=== PATIENT | male | born 1985 | race Caucasian/White ===

== ENCOUNTER 2018-11-25 21:12 | Emergency (ER) | payer MEDICARE ==
[2018-11-25 21:27] VITALS: BP 120/73
--- NOTE | 2018-11-25 22:29 | ER Document Report ---
ED General - General Chief Complaint: Trouble Voiding Stated Complaint: URINARY ISSUES Time Seen by Provider: 11/25/18 22:28 Notes: Patient is a 33-year-old male that presents to the emergency department for chief complaint of not urinating. Patient is mentally handicapped, has a difficult time articulating what is been going on but he states that he has not urinated since last night potentially, but he does not always remember. He denies having any pain associated with this. He does states that he cannot go. He denies any recent fever, chills, nausea, vomiting or abdominal pain. No chest pain or shortness of breath. He states that yesterday his testicle on the left side was slightly swollen, but has since gone down. Past Medical History: Developmental delay Past Surgical History: Denies recent or pertinent surgical history Social History: Denies current tobacco, alcohol or drug use. Family History: Reviewed and noncontributory for presenting illness Allergies: Reviewed, see documented allergy list. REVIEW OF SYSTEMS: Other than noted above, the 12 point review of systems was reviewed with the patient and were negative, all pertinent findings are included in the HPI. PHYSICAL EXAMINATION: Vital signs reviewed, nursing noted reviewed. GENERAL: Well-appearing, well-nourished and in no acute distress. HEAD: Atraumatic, normocephalic. EYES: Eyes appear normal, extraocular movements intact, sclera anicteric, co njunctiva are normal. ENT: nares patent, oropharynx clear without exudates. Moist mucous membranes. NECK: Normal range of motion, supple without lymphadenopathy LUNGS: Breath sounds clear to auscultation bilaterally and equal. No wheezes rales or rhonchi. HEART: Regular rate and rhythm without murmurs ABDOMEN: Soft, nontender, normoactive bowel sounds. No rebound, guarding, or rigidity. No masses appreciated. Male genital: Testicles are in vertical lie bilaterally, nontender, nonedematous, scrotum is unremarkable, intact cremasteric reflexes bilaterally, no blood or discharge noted at the penile meatus, no tenderness to palpation of the glands. Normal exam. EXTREMITIES: Nontender, good range of motion, no pitting or edema. NEUROLOGICAL: No focal neurological deficits. Moves all extremities spontaneously Motor and sensory grossly intact on exam. PSYCH: Poor historian, but normal mood and affect. SKIN: Warm, Dry, normal turgor, no rashes or lesions noted on exposed skin TRAVEL OUTSIDE OF THE [place] IN LAST 30 DAYS: No - Related Data Allergies/Adverse Reactions: diphenhydramine [From Benadryl] Allergy (Verified 11/25/18 21:31) venom-wasp Allergy (Verified 11/25/18 21:31) Past Medical History - Social History Smoking Status: Former Smoker Frequency of alcohol use: None Drug Abuse: None Family History: Reviewed & Not Pertinent Patient has suicidal ideation: No Patient has homicidal ideation: No Physical Exam - Vital signs Vitals: Temp Pulse Resp BP Pulse Ox 97.5 F 88 16 120/73 97 11/25/18 21:18 11/25/18 21:18 11/25/18 21:18 11/25/18 21:18 11/25/18 21:18 Course - Re-evaluation Re-evalutation: Patient is a poor historian, check urinalysis, the patient did not have any fullness or suprapubic tenderness, I do not suspect that he is having urinary retention, particularly since yesterday, I would suspect a rather full bladder, and significant suprapubic tenderness, we will obtain a bladder scan as well. UA was unremarkable for signs of urinary tract infection, or protein or hematuria. At this point I recommend the patient take some Pyridium, he was able to urinate without issue, with his transient scrotal swelling, to possibly has a sliding inguinal hernia, however I am not able to appreciate on exam today, but if it persists I advised a follow-up with the surgeon, as it may be the culprit of his symptoms. Patient is discharged home to follow-up. Laboratory 11/25/18 22:55 Urine Color YELLOW Urine Appearance CLEAR Urine pH 7.0 Ur Specific [place] 1.014 Urine Protein NEGATIVE Urine Glucose (UA) NEGATIVE Urine Ketones NEGATIVE Urine Blood NEGATIVE Urine Nitrite NEGATIVE Urine Bilirubin NEGATIVE Urine Urobilinogen 8.0 H Ur Leukocyte Esterase NEGATIVE Urine WBC (Auto) 1 Urine RBC (Auto) 1 Urine Mucus (Auto) RARE Urine Ascorbic Acid 40 H - Vital Signs Vital signs: Temp Pulse Resp BP Pulse Ox 97.5 F 88 16 120/73 97 11/25/18 21:18 11/25/18 21:18 11/25/18 21:18 11/25/18 21:18 11/25/18 21:18 - Laboratory Laboratory results interpreted by me: 11/25/18 22:55 Urine Urobilinogen 8.0 H Urine Ascorbic Acid 40 H Discharge - Discharge Clinical Impression: Dysuria Condition: Stable Disposition: HOME, SELF-CARE Instructions: Hernia ([facility]) Additional Instructions: He may have a hernia that is causing his symptoms, please follow-up with the surgeon if his symptoms continue to occur over the next several days or weeks. Prescriptions: Phenazopyridine HCl [Pyridium 200 mg Tablet] 200 mg PO TID #15 tablet Referrals: EDISON BUNN MD [ACTIVE STAFF] - Follow up in 3-5 days
[2018-11-25] MEDS ORDERED: NORMAL SALINE 1000 ML 1,000 ML IV ONE (22:46)
[2018-11-25 23:05] LABS: APPEARANCE,URINE CLEAR; BILIRUBIN,URINE NEGATIVE (NEGATIVE); COLOR,URINE YELLOW; GLUCOSE, URINE NEGATIVE (NEGATIVE); KETONES,URINE NEGATIVE (NEGATIVE); LEUKOCYTE ESTERASE,URINE NEGATIVE (NEGATIVE); NITRITE,URINE NEGATIVE (NEGATIVE); PROTEIN,URINE NEGATIVE (NEGATIVE)
[2018-11-25 23:18] LABS: URINE SPECIFIC GRAVITY 1.014
== END 2018-11-25 23:56 | disposition home or self-care (01) ==
LOC: ER 21:12
DX: R30.0 Dysuria (principal); R39.198 Other difficulties with micturition
CPT/HCPCS: 81001; 87086